=== PATIENT | female | born 1990 | race African-American/Black ===

== ENCOUNTER 2021-04-29 17:19 | Emergency (ER) | payer MEDICAID, OTHER ==
[~2021-04-29] VITALS: Ht 165.1 cm; Wt 54.4 kg
[2021-04-29 17:20] VITALS: BP 131/79
[2021-04-29] MEDS ORDERED: ACETAMINOPHEN 325MG TABLET PO ONE (18:15)
[2021-04-29] MEDS ORDERED: LORAZEPAM 1MG TABLET PO ONE (18:15)
[2021-04-29 19:48] LABS: *BARBITURATES SCREEN URINE NEGATIVE (NEGATIVE); *BENZODIAZEPINES SCREEN URINE NEGATIVE (NEGATIVE); *COCAINE SCREEN URINE NEGATIVE (NEGATIVE)
[2021-04-29 19:49] LABS: *AMPHETAMINES SCREEN URINE NEGATIVE (NEGATIVE); METHADONE URINE SCREEN NEGATIVE (NEGATIVE); OPIATES URINE SCREEN NEGATIVE (NEGATIVE); PHENCYCLIDINE URINE SCREEN NEGATIVE (NEGATIVE)
[2021-04-29] MEDS ORDERED: ACET-2708 MT (19:55)
[2021-04-29 20:01] LABS: CANNABINOID URINE SCREEN PRESUMTIVE POSITIVE (NEGATIVE)
== END 2021-04-29 20:13 | disposition home or self-care (01) ==
LOC: ER 17:19
DX: R09.1 Pleurisy (principal); Z72.0 Tobacco use; Z13.9 Encounter for screening, unspecified; Z98.890 Other specified postprocedural states
CPT/HCPCS: 71045; 80305; 81025; 99284